=== PATIENT | female | born 1985 | race African-American/Black ===

== ENCOUNTER 2016-04-27 19:11 | Emergency (ER) | payer OTHER, SELFPAY ==
[~2016-04-27] VITALS: Ht 165.1 cm; Wt 61.2 kg
[~2016-04-27 19:11] MED LIST: BACTRIM DS TAB1 EAC1 ORAL; BACTRIM-DS1 EA ORAL; CEPHALEXIN500 MG PO; KEFLEX500 MG ORAL; NKM; NORCO1 EA ORAL
[2016-04-27] MEDS ORDERED: IBUPROFEN600 MG ORAL (21:19)
[2016-04-27] MEDS ORDERED: NORCO 5-325 TA1 EACH ORAL (21:19)
[2016-04-27 21:31] VITALS: BP 131/69
[2016-04-27 21:32] VITALS: BP 135/67
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
== END 2016-04-27 21:33 | disposition home or self-care (01) ==
LOC: EMR 20:10
DX: S02.40FA Zygomatic fracture, left side, initial encounter for closed fracture (principal); S00.83XA Contusion of other part of head, initial encounter; Y00.XXXA Assault by blunt object, initial encounter; Y92.89 Other specified places as the place of occurrence of the external cause; Y99.8 Other external cause status
CPT/HCPCS: 70486; 81025; 99284

== ENCOUNTER 2018-01-10 06:49 | Emergency (ER) | payer OTHER ==
[~2018-01-10] VITALS: Ht 165.1 cm; Wt 76.2 kg
[~2018-01-10 06:49] MED LIST changes: +IBUPROFEN600 MG ORAL; +NORCO 5-325 TA1 EACH ORAL
[2018-01-10 06:58] VITALS: BP 129/83
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
[2018-01-10] MEDS ORDERED: Hydrogen Peroxide 473ml Bottle TOPIC ONE (07:15)
[2018-01-10] MEDS: Tylenol #3 tab (300mg/30mg) ORAL ONE (07:15)
[2018-01-10] MEDS ORDERED: IBUPROFEN600 MG ORAL (08:05)
[2018-01-10] MEDS ORDERED: ACETAMINOPHEN-1 EAC1 ORAL (08:05)
[2018-01-10 08:31] VITALS: BP 129/83
== END 2018-01-10 08:33 | disposition home or self-care (01) ==
LOC: EMR 07:23
DX: S00.83XA Contusion of other part of head, initial encounter (principal); S00.81XA Abrasion of other part of head, initial encounter; S01.112A Laceration without foreign body of left eyelid and periocular area, initial encounter; Y04.0XXA Assault by unarmed brawl or fight, initial encounter; W22.8XXA Striking against or struck by other objects, initial encounter; Y92.89 Other specified places as the place of occurrence of the external cause
CPT/HCPCS: 99283

== ENCOUNTER 2018-10-19 06:55 | Emergency (ER) | payer BC, OTHER ==
[~2018-10-19] VITALS: Ht 165.1 cm; Wt 70.3 kg
[~2018-10-19 06:55] MED LIST changes: +ACETAMINOPHEN-1 EAC1 ORAL
--- NOTE | 2018-10-19 07:05 | NUR ---
ED Nurse Note: Patient walked into ED c/o tripped and sprained her ankle last night, patient reports pain 5-6/10 on the right ankle and right knee. patient is a/o x4 ambulatory, breathing unlabored and even. skin is warm to touch.
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
[2018-10-19] MEDS ORDERED: IBUPROFEN600 MG ORAL (07:27)
[2018-10-19 07:35] VITALS: BP 116/65
--- NOTE | 2018-10-19 07:36 | NUR ---
ER DISCHARGE NOTE: Patient is cleared to be discharged per ERMD DR Horton, pt is aox4, on room air, with stable vital signs. pt was given dc and prescription instructions, pt was able to verbalize understanding, pt id band removed without complications. pt is able to ambulate with steady gait. pt took all belongings.
== END 2018-10-19 07:34 | disposition home or self-care (01) ==
LOC: EMR 07:30
DX: S93.431A Sprain of tibiofibular ligament of right ankle, initial encounter (principal); S83.8X1A Sprain of other specified parts of right knee, initial encounter; X50.1XXA Overexertion from prolonged static or awkward postures, initial encounter; Y92.9 Unspecified place or not applicable
CPT/HCPCS: 99282

== ENCOUNTER 2019-05-03 17:14 | Emergency (ER) | payer SELFPAY ==
[~2019-05-03] VITALS: Ht 162.6 cm; Wt 76.2 kg
[2019-05-03 18:11] VITALS: BP 110/68
--- NOTE | 2019-05-03 18:42 | Emergency Room Report ---
History of Present Illness General Chief Complaint: Flu Like Symptoms Source: Patient Present Illness HPI 35-year-old female presents to the emergency department complaining of 7 out of 10 severity body aches, sinus pressure pain, fatigue and cough since yesterday. 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 She reports chills all last night and today. Patient states she has not checked for fever. She denies rash or recent travel. Patient denies any significant past medical history she states she is otherwise healthy she states she has not taken any medications for her symptoms other than Tylenol. She denies sore throat, headache, neck pain/stiffness, photophobia, sputum production, Dizziness or CP. She denies dysuria or urinary frequency. Allergies: Coded Allergies: No Known Allergies (Unverified , 09/14/12) Patient History Past Medical History: see triage record Past Surgical History: none Pertinent Family History: none Last Menstrual Period: last week Now: No Reviewed Nursing Documentation: PMH: Agreed; PSxH: Agreed Nursing Documentation-PMH Past Medical History: No Stated History Review of Systems All Other Systems: negative except mentioned in HPI Physical Exam Vital Signs Date Time Temp Pulse Resp B/P (MAP) Pulse Ox O2 Delivery O2 Flow Rate FiO2 05/03/19 17:27 98.4 92 18 111/66 (81) 99 Room Air Sp02 EP Interpretation: reviewed, normal General Appearance: no apparent distress, alert, GCS 15, non-toxic Head: normocephalic, atraumatic Eyes: bilateral eye normal inspection, bilateral eye PERRL ENT: hearing grossly normal, normal pharynx, normal voice, TMs + canals normal , uvula midline, moist mucus membranes, nasal congestion - LEft nare is barely patent. right nare with clear rhinorrhea Neck: full range of motion, no meningismus, no bony tend Respiratory: lungs clear, normal breath sounds, no wheezing, speaking full sentences Gastrointestinal: non tender, soft Musculoskeletal: back normal, normal range of motion, gait/station normal, non- tender Neurologic: alert, motor strength/tone normal, oriented x3, sensory intact, responsive, speech normal Psychiatric: judgement/insight normal Skin: no rash, normal color Lymphatic: other - subparotid lad bilaterally. Medical Decision Making PA Attestation Dr. Franklin Is my supervising Physician whom patient management has been discussed with. Diagnostic Impression: Primary Impression: Acute viral syndrome ER Course 35-year-old female presents to the emergency department complaining of 7 out of 10 severity body aches, sinus pressure pain, fatigue and cough since yesterday. 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 She reports chills all last night and today. Patient states she has not checked for fever. She denies rash or recent travel. Patient denies any significant past medical history she states she is otherwise healthy she states she has not taken any medications for her symptoms other than Tylenol. She denies sore throat, headache, neck pain/stiffness, photophobia, sputum production, Dizziness or CP. She denies dysuria or urinary frequency. Ddx considered but are not limited to URI, pneumonia, PE, strep pharyngitis, meningitis, influenza, OM/OE just to name a few. Vital signs: Pt. is afebrile, the remaining VS are WNL H&PE are most consistent with Viral Syndrome suspicious for Influenza will treat clinically - no meningeal signs, Lungs are clear and oropharynx is not involved, no evidence of bacterial infection at this time. ORDERS: none required at this time, the diagnosis is clinical ED INTERVENTIONS: None required at this time. --PT. EDUCATION: --I discussed with this patient that I will be prescribing Tamiflu which is an antiviral. This medication is not always covered by insurance and is not always available at pharmacies. I educated patient that this medication has been shown to reduce symptoms by 1 day, and if unable to obtain there is no alternative, and to continue conservative treatment. DISCHARGE: At this time pt. is stable for d/c to home. Will provide printed patient care instructions, and any necessary prescriptions. Care plan and follow up instructions have been discussed with the patient prior to discharge. Last Vital Signs Date Time Temp Pulse Resp B/P (MAP) Pulse Ox O2 Delivery O2 Flow Rate FiO2 05/03/19 18:11 98.4 91 18 110/68 99 Room Air Disposition: HOME, SELF-CARE Condition: Stable Scripts Oxymetazoline HCl (Afrin) 15 Ml Kingsley 2 SPRAYS NASAL TWICE A DAY for 3 Days, #30 SPRAY Do not use for more than 3 consecutive days Prov: Marianne Posadas 05/03/19 Naproxen* (NAPROXEN*) 500 Mg Tablet 500 MG ORAL BID, #30 TAB 0 Refills Prov: Marianne Posadas 05/03/19 Codeine/Promethazine Hcl* (PROMETHAZINE-CODEINE SYRUP*) 118 Ml Syrup 5 ML ORAL Q6H PRN for For Cough, #120 ML 0 Refills Prov: Marianne Posadas 05/03/19 Oseltamivir Phosphate (Tamiflu) 75 Mg Capsule 75 MG ORAL TWICE A DAY for 5 Days, #10 CAP Prov: Marianne Posadas 05/03/19 Referrals: NOT CHOSEN IPA/MD,REFERRING (PCP) Departure Forms: Return to Work Return to Work Date: May 06, 2019 Work Restrictions: None Other Restrictions: May return Sooner if Symptoms have resolved. Return to Full Activity: May 06, 2019 Patient Instructions: Influenza, Adult, [id number] Additional Instructions: Take medications as directed. Follow up with a Primary Care Provider in 3-5 days, even if your symptoms have resolved. Return sooner to ED if new symptoms occur, or current symptoms become worse. Do not drink alcohol, drive, or operate heavy machinery while taking Cough Syrup as this may cause drowsiness. - Please note that this Emergency Department Report was dictated using [employer] in worker technology software, occasionally this can lead to erroneous entry secondary to interpretation by the dictation equipment. Marianne Posadas May 03, 2019 18:42
[2019-05-03] MEDS ORDERED: TAMIFLU75 MG ORAL (18:45)
[2019-05-03] MEDS ORDERED: NAPROXEN500 M2 ORAL (18:45)
[2019-05-03] MEDS ORDERED: AFRIN NASAL SPR30 ML NASAL (18:45)
[2019-05-03] MEDS ORDERED: PROMETHAZINE-C118 M1 ORAL (18:45)
[2019-05-03 19:10] VITALS: BP 109/69
== END 2019-05-03 19:11 | disposition home or self-care (01) ==
LOC: EMR 18:00
DX: B34.9 Viral infection, unspecified (principal)
CPT/HCPCS: 99282

== ENCOUNTER 2020-05-07 15:25 | Emergency (ER) | payer BC, MEDICAID ==
[~2020-05-07] VITALS: Ht 165.1 cm; Wt 70.8 kg
[~2020-05-07 15:25] MED LIST changes: +AFRIN NASAL SPR30 ML NASAL; +NAPROXEN500 M2 ORAL; +PROMETHAZINE-C118 M1 ORAL; +TAMIFLU75 MG ORAL
--- NOTE | 2020-05-07 15:37 | NUR ---
ED Nurse Note: Pt walked in to Ed c/o pain ad swelling to left foot x20 mins ago S/P fall. Pt unable to flex her toes, unable to bear weight on the affected area. AAOx4, verbally responsive. No SOB.
--- NOTE | 2020-05-07 15:58 | NUR ---
ED Nurse Note: Pt was taken to Xray.
[2020-05-07] MEDS ORDERED: Ketorolac 30mg Inj IM ONE (16:30)
--- NOTE | 2020-05-07 16:30 | Diagnostic Imaging Report ---
Indication: Pain, status post fall Technique: 3 views of the left ankle Comparison: none Findings: There is a transverse fracture of the base of the fifth metatarsal. No ankle fracture demonstrated. Joint spaces are preserved Impression: Positive for fifth metatarsal base fracture
--- NOTE | 2020-05-07 16:30 | Diagnostic Imaging Report ---
Indication: Trauma, pain Technique: 3 views left foot Comparison: none Findings: There is a transverse nondisplaced fracture of the left fifth metatarsal base. No other acute fracture. No dislocation. Joint spaces are preserved Impression: Positive for left fifth metatarsal fracture
--- NOTE | 2020-05-07 16:52 | Emergency Room Report ---
History of Present Illness General Chief Complaint: Lower Extremity Injury Source: Patient Present Illness HPI 35-year-old female with no signal past medical history here status post fall twisting her left ankle and foot x2 days. Obvious tenderness to palpation deformity of left fifth metatarsal noted. Patient is neurovascularly intact. The patient has had without radiation. Has not taken medication for symptom relief. Denies all other injuries, . 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 Patient History Past Medical History: see triage record Past Surgical History: none Pertinent Family History: none Last Menstrual Period: a month ago Now: No Immunizations: UTD Reviewed Nursing Documentation: PMH: Agreed; PSxH: Agreed Nursing Documentation-PMH Past Medical History: No Stated History Review of Systems All Other Systems: negative except mentioned in HPI Physical Exam Vital Signs Date Time Temp Pulse Resp B/P (MAP) Pulse Ox O2 Delivery O2 Flow Rate FiO2 05/07/20 15:30 98.6 82 19 123/82 (96) 99 Room Air Sp02 EP Interpretation: reviewed, normal General Appearance: no apparent distress, alert, GCS 15, non-toxic Head: normocephalic, atraumatic Eyes: bilateral eye normal inspection, bilateral eye PERRL ENT: hearing grossly normal, no angioedema, normal voice Neck: supple, no meningismus, no bony tend Respiratory: no respiratory distress, no retraction, no accessory muscle use Cardiovascular #1: regular rate, rhythm, no edema Cardiovascular #2: 2+ dorsalis pedis (R), 2+ dorsalis pedis (L) Musculoskeletal: back normal, no calf tenderness, pelvis stable, tender - Left fifth metatarsal Neurologic: alert, motor strength/tone normal, oriented x3, sensory intact, responsive, speech normal Psychiatric: judgement/insight normal, memory normal, mood/affect normal, no suicidal/homicidal ideation Skin: no rash Lymphatic: no adenopathy Procedures Splinting Splinting : Consent: Verbal Location: Left foot Hand-Made Type: plaster Splint: poserior short Pre-Proc Neuro Vasc Exam: normal Post-Proc Neuro Vasc Exam: normal Patient Tolerated: Well Complications: None Progress Crutches provided Medical Decision Making PA Attestation All diagnosis and treatment plans were discussed and reviewed by my supervising physician Dr. Ingram Diagnostic Impression: Primary Impression: Meier fracture ER Course 35-year-old female with no signal past medical history here status post fall twisting her left ankle and foot x2 days. Obvious tenderness to palpation deformity of left fifth metatarsal noted. Patient is neurovascularly intact. The patient has had without radiation. Has not taken medication for symptom relief. Denies all other injuries, . Ddx considered but are not limited to: foot fracture, foot sprain, foot contusion, foot strain Vital signs: are WNL, pt. is afebrile H&PE are most consistent with: Meier fracture left foot ORDERS: foot Xray, ankle x-ray, Tylenol 3, ibuprofen ED INTERVENTIONS: Toradol DISCHARGE: At this time pt. is stable for d/c to home. Will provide printed patient care instructions, and any necessary prescriptions. Care plan and follow up instructions have been discussed with the patient prior to discharge. Patient take medication as directed, follow student education specialist soon as possible essential to have nonweight bearing lifestyle at this time and also follow-up with Ortho in order to avoid chronic pain and damage to the left foot. If worsening symptoms return to the emergency Other X-Ray Diagnostic Results Other X-Ray Diagnostic Results #1: X-Ray ordered: Left foot # of Views/Limited Vs Complete: 3 View Indication: Pain EP Interpretation: Yes PA Xray: Interpretation reviewed, by supervising MD, and agrees with findings. Interpretation: other - Meier fracture left fifth metatarsal Impression: Other - Meier fracture left fifth metatarsal Electronically Signed by: Zi Merritt PA-C Other X-Ray Diagnostic Results #2: X-Ray ordered: Left ankle # of Views/Limited Vs Complete: 3 View Indication: Pain EP Interpretation: Yes PA Xray: Interpretation reviewed, by supervising MD, and agrees with findings. Interpretation: other - Meier fracture left fifth metatarsal Impression: Other - Meier fracture left fifth metatarsal Electronically Signed by: Zi Merritt PA-C Last Vital Signs Date Time Temp Pulse Resp B/P (MAP) Pulse Ox O2 Delivery O2 Flow Rate FiO2 05/07/20 15:30 98.6 82 19 123/82 (96) 99 Room Air Disposition: HOME, SELF-CARE Condition: Stable Scripts Acetaminophen With Codeine (T#3) (TYLENOL #3 TAB*) Y Tab 1 TAB ORAL Q8HR PRN for For Pain for 3 Days, #10 TAB Prov: Zi Chan 05/07/20 Ibuprofen (Ibu) 800 Mg Tablet 800 MG PO TID, #30 TAB Prov: Zi Chan 05/07/20 Patient Instructions: Metatarsal Fracture With Rehab-SportsMed Additional Instructions: Take medication as directed, follow-up with student education specialist as soon as possible. You should not be weightbearing at this time and we can be permanent chronic pain if you do not take care of is a follow-up with student education specialist right away. If worsening symptoms return to the emergency Zi Chan May 07, 2020 16:52
[2020-05-07] MEDS ORDERED: ACETAMINOPHEN-1 EAC1 ORAL (16:53)
[2020-05-07] MEDS ORDERED: IBU800 MG PO (16:53)
[2020-05-07 17:22] VITALS: BP 118/71
--- NOTE | 2020-05-07 17:23 | NUR ---
ED Nurse Note: Pt cleared by ERPA for discharge. DC instructions/prescription was given and explained to pt and verbalized understanding of teachings. All medical deviecs such as ID band removed. Pt is AAO x4, ambulatory and left with all personal belongings.
== END 2020-05-07 18:00 | disposition home or self-care (01) ==
LOC: EMR 17:20
DX: S92.355A Nondisplaced fracture of fifth metatarsal bone, left foot, initial encounter for closed fracture (principal); W19.XXXA Unspecified fall, initial encounter; Y92.9 Unspecified place or not applicable
CPT/HCPCS: 29515; 96372; 99283